=== PATIENT | male | born 1950 | race Caucasian/White ===

== ENCOUNTER 2022-04-06 18:26 | Emergency (ER) | payer MEDICARE, OTHER, SELFPAY ==
[2022-04-06 19:29] VITALS: BP 130/62; PULSE 99; RESP 16; TEMP 36.5; O2SAT 95; BMI 32.1
[2022-04-06 20:17] VITALS: BP 119/80; PULSE 93; RESP 18; TEMP 36.4; O2SAT 95
--- NOTE | 2022-04-06 22:38 | ED_ITS ---
HPI - General Adult General Chief complaint: Back Pain/Injury Stated complaint: severe back pain post surgery Time Seen by Provider: 04/06/22 22:37 Source: patient Limitations: no limitations History of Present Illness HPI narrative: This is a 72-year-old male with history of lumbar disc disease and spinal fusion surgery done about a year ago. The patient had been doing well until about a month ago when he had recurrence of pain in his lower back. The patient did see his neurologist and had a steroid injection which initially seemed to help, however patient states the pain came back and had a 2nd steroid injection which did not seem to help as much. The patient has been taking Percocet, takes 2 tabs twice a day but states that they do not seem to be helping. He states other medicines such as NSAIDs do not help. He he was on a Medrol Dosepak in the last month but states that did not help as much as it had previously. He is scheduled to see his spine surgeon May 02 but states that the pain is worsening and that when he stands up he gets electric shock feeling down his posterior legs. He did have a recent MRI and shows me the results of it, it does show disc protrusions and foraminal narrowing in the lower lumbar spine. Related Data Previous Rx's Medication Instructions Recorded hydromorphone 2 mg tablet 2 mg PO Q4H PRN pain #12 tabs 04/06/22 (Dilaudid) methylprednisolone 4 mg tablets in 4 mg PO DAILY #21 ea 04/06/22 a dose pack (Methylpred DP) Allergies Allergy/AdvReac Type Severity Reaction Status Date / Time diphenhydramine Allergy Palpitation Verified 04/06/22 19:33 [From Elise] s Review of Systems Review of Systems: Per HPI Constitutional: Constitutional: Denies fever(s) and Denies weakness Genitourinary: Genitourinary: Denies urinary incontinence Neurologic: Reports radicular pain, Reports paresthesias and Denies weakness PMFSH Social History Social History Advance Directives: No Advance Directives Information Provided: No Physical Exam ED Vital Signs: Vital Signs - 24 hr 04/06/22 19:29 04/06/22 20:17 Temperature 97.7 F 97.6 F Pulse Rate 99 93 Respiratory Rate 16 18 Blood Pressure 130/62 119/80 Pulse Oximetry 95 95 Oxygen Delivery Method Room Air Room Air BMI result Body Mass Index 32.1 Const Other: Sitting in chair, hips and knees flexed General: no acute distress Orientation/consciousness: patient oriented x3 HENMT Head: Yes normal to inspection General nose exam: Normal external nose present Mouth: moist mucous membranes Throat: Yes posterior oropharynx normal, Yes tonsils normal and Yes uvula midline Eyes Eyelids: Yes eyelids normal Conjunctivae: conjunctivae normal Pupils: Equal, round and reactive pupils present Neck Neck: Yes supple Resp Effort & Inspection: normal respiratory effort Auscultation: clear to auscultation bilaterally Cardio Rate: regular rate Rhythm: regular rhythm Heart sounds: S1 normal heart sound present, S2 normal heart sound present, no gallops, no murmurs and no rubs GI Inspection: No distended Palpation (GI): Soft to palpation and nontender Auscultation: normal bowel sounds Back/Spine/Pelvis Other: Tender mid to lower lumbar spine Skin General skin exam: other (Warm and dry) Neuro General: patient oriented x3 and CN's II-XI intact bilaterally Cranial nerves: Yes Equal, round and reactive pupils present Extrem General: Yes no pedal edema Psych Affect: normal affect Attitude: cooperative Medical Decision Making [facility] Narrative Medical decision making narrative: Patient with lumbar disc disease and lumbar radiculopathy, had a recent MRI showing significant disc protrusion, foraminal narrowing. Patient is scheduled to see his spine surgeon, and has had recent steroid injections by his neurologist. Patient has been on Percocet does have poorly-controlled pain. Patient did have improvement with Dilaudid, Valium, Toradol. Will prescribe Dilaudid to take for the next few days pending re-evaluation by his spine surgeon Discharge Plan Discharge Clinical Impression: Lumbar radiculopathy Patient Disposition: Home, Self-Care Instructions: Lumbar Radiculopathy (ED) Additional Instructions: Use the hydromorphone and that of oxycodone to see if that better controls her pain. Use the Medrol Dosepak as well. Call your spine surgeon on Friday to explain the need to be seen sooner, or need steroid/lidocaine injection to help treat her symptoms until you can have possible surgery Prescriptions: New methylprednisolone [Methylpred DP] 4 mg tablets,dose pack 4 mg PO DAILY Qty: 21 0RF hydromorphone [Dilaudid] 2 mg tablet 2 mg PO Q4H PRN (Reason: pain) Qty: 12 0RF Rx Instructions: Partial Fill upon patient request. Interventions: ED Discharge Assessment Last Done: 04/06/22 23:46 Discharge Date/Time: 04/06/22 23:47
[2022-04-06] MEDS: Ketorolac Tromethamine 15 MG/ML VIAL IM (22:51)
[2022-04-06] MEDS: HYDROmorphone HCl 2 MG TABLET PO (22:53)
[2022-04-06] MEDS: diazePAM 2 MG TABLET PO (22:55)
== END 2022-04-06 23:47 | disposition home or self-care (01) ==
PROVIDERS: Emergency Provider Emergency Medicine; PCP Internal Medicine
DX: M54.16 Radiculopathy, lumbar region (principal); Z79.899 Other long term (current) drug therapy
CPT/HCPCS: 96372; 99283; 99284; J1885